=== PATIENT | female | born 1970 | race Caucasian/White ===

== ENCOUNTER → 2016-03-17 | Outpatient (CLI) | payer BC ==
[~2016-03-17] MED LIST: CARAFATE1 G1; CLARITIN10 MG PO; GABAPENTIN300 M1 PO; METFORMIN ER500 MG PO; NEURONTIN100 MG PO; NEURONTIN300 MG PO; NORCO 325 MG-51 TAB PO; PAMELOR10 M1 PO; PRILOSEC40 MG; TAMIFLU75 MG PO; VIMOVO; VITAMIN D2000 IU PO
[2016-03-18 17:04] LABS: LYME AB/TOTAL IMMUNOGLOBULINS <0.91 ISR (0.00-0.90)
== END | disposition home or self-care (01) ==
LOC: LAB 14:14
PROVIDERS: Orthopaedic Surgery Orthopaedic Surgery of the Spine
DX: A69.20 Lyme disease, unspecified (principal)

== ENCOUNTER → 2016-05-22 | Outpatient (CLI) | payer BC ==
[2016-05-23 05:11] LABS: HEPATITIS B SURFACE AB 006395 Reactive (.)
[2016-05-23 12:09] LABS: SJOGREN ANTI-SS-A <0.2 AI (0.0-0.9); SJOREN AB, ANTI-SS-B <0.2 AI (0.0-0.9)
== END | disposition home or self-care (01) ==
LOC: LAB 12:38
PROVIDERS: Internal Medicine
DX: M35.01 Sjogren syndrome with keratoconjunctivitis (principal); R53.82 Chronic fatigue, unspecified; M54.5 Low back pain

== ENCOUNTER → 2016-07-26 | Outpatient (CLI) | payer BC | LOC: RAD 17:09 | DX: M47.892 Other spondylosis, cervical region (principal); M50.222 Other cervical disc displacement at C5-C6 level; M48.02 Spinal stenosis, cervical region ==

== ENCOUNTER → 2017-01-25 | Outpatient (CLI) | payer OTHER | END | disposition home or self-care (01) | LOC: MAMMO 01-10 01:14 | DX: Z12.31 Encounter for screening mammogram for malignant neoplasm of breast (principal) ==

== ENCOUNTER → 2017-01-30 | Outpatient (CLI) | payer OTHER ==
[2017-01-30 09:11] LABS: HEMATOCRIT 43.2 % (37.0-47.0); HEMOGLOBIN 14.7 g/dl (12.0-16.0); MEAN CELL VOLUME 92.5 fl (81.0-99.0); MEAN CORPUSCULAR HGB 31.5 pg (27.0-31.0); MEAN PLATELET VOLUME 11.4 fl (9.6-12.3); RED BLOOD COUNT 4.67 10*6/uL (4.10-5.10); RED CELL DISTRI WIDTH 12.5 % (0-14.5); WHITE BLOOD COUNT 12.9 10*3/uL (4.8-10.8)
[2017-01-30 09:24] LABS: CHLORIDE 105 mmol/L (98-107); POTASSIUM 3.7 mmol/L (3.5-5.1); SODIUM 140 mmol/L (136-145)
[2017-01-30 09:40] LABS: ALKALINE PHOSPHATASE 81 U/L (45-117); BUN 16 mg/dl (7-24); CHOLESTEROL 245 mg/dL (<200); CREATININE 0.77 mg/dL (0.55-1.02); HDL CHOLESTEROL 63 mg/dl (40-60); LDL CHOLESTEROL 158 mg/dL (9-159); SGOT/AST 12 IU/L (3-35); SGPT/ALT 20 U/L (12-78); TOTAL PROTEIN 8.4 gm/dL (6.4-8.2); TRIGLYCERIDES 122 mg/dl (<150); VLDL CHOLESTEROL 24 mg/dL (6-40)
[2017-01-30 10:02] LABS: VITAMIN D, 25-HYDROXY 34.8 ng/mL (30-100)
== END | disposition home or self-care (01) ==
LOC: LAB 01:40
DX: E55.9 Vitamin D deficiency, unspecified (principal); R10.11 Right upper quadrant pain; E78.00 Pure hypercholesterolemia, unspecified; Z87.19 Personal history of other diseases of the digestive system

== ENCOUNTER → 2017-06-25 | Outpatient (CLI) | payer OTHER | END | disposition home or self-care (01) | LOC: RESCLI 02:50 | DX: I10 Essential (primary) hypertension (principal); R00.0 Tachycardia, unspecified; R01.1 Cardiac murmur, unspecified; E55.9 Vitamin D deficiency, unspecified; M79.2 Neuralgia and neuritis, unspecified; E28.2 Polycystic ovarian syndrome; K21.9 Gastro-esophageal reflux disease without esophagitis; E66.9 Obesity, unspecified; Z68.31 Body mass index [BMI] 31.0-31.9, adult ==

== ENCOUNTER → 2017-07-02 | Outpatient (CLI) | payer OTHER | END | disposition home or self-care (01) | LOC: LAB 02:54 → CARD 07:00 | DX: I34.0 Nonrheumatic mitral (valve) insufficiency (principal); I10 Essential (primary) hypertension; E55.9 Vitamin D deficiency, unspecified; R79.89 Other specified abnormal findings of blood chemistry ==

== ENCOUNTER → 2017-07-23 | Outpatient (CLI) | payer OTHER | END | disposition home or self-care (01) | LOC: RESCLI 04:05 | DX: I10 Essential (primary) hypertension (principal); E66.09 Other obesity due to excess calories; K21.9 Gastro-esophageal reflux disease without esophagitis; J45.909 Unspecified asthma, uncomplicated; E66.9 Obesity, unspecified; E55.9 Vitamin D deficiency, unspecified; M54.2 Cervicalgia; M54.5 Low back pain; E28.2 Polycystic ovarian syndrome; Z90.49 Acquired absence of other specified parts of digestive tract; Z68.30 Body mass index [BMI] 30.0-30.9, adult ==

== ENCOUNTER 2018-01-16 12:58 | Emergency (ER) | payer OTHER ==
[~2018-01-16] VITALS: Ht 154.9 cm; Wt 72.6 kg
[~2018-01-16 12:58] MED LIST changes: +VITAMIN D-32000 UNI1 PO; -VITAMIN D2000 IU PO
[2018-01-16 12:59] VITALS: BP 138/64
[2018-01-16] MEDS ORDERED: TOPROL XL25 MG PO (13:04)
[2018-01-16] MEDS ORDERED: DULOXETINE HCL30 MG PO (13:04)
[2018-01-16 13:49] LABS: BILIRUBIN NEGATIVE (NEGATIVE); BLOOD NEGATIVE (NEGATIVE); CLARITY SL CLOUDY (CLEAR); COLOR YELLOW (YELLOW); GLUCOSE NEGATIVE (NEGATIVE); KETONE NEGATIVE (NEGATIVE); LEUKO ESTERASE NEGATIVE (NEGATIVE); NITRITE NEGATIVE (NEGATIVE); PH 5.5 (5.0-9.0); UROBILINOGEN 0.2 E.U./dl (0.2-1.0)
[2018-01-16 14:03] LABS: RBC 0-2 rbc/hpf (0-2)
[2018-01-16 14:14] LABS: BASO % 0.3 % (0.0-1.0); EOS # 0.1 10*3/uL (0.0-0.4); EOS % 0.9 % (1.0-4.0); HEMATOCRIT 40.4 % (37.0-47.0); HEMOGLOBIN 13.6 g/dl (12.0-16.0); LYMPH # 2.7 10*3/uL (1.3-4.4); LYMPH % 26.2 % (27.0-41.0); MEAN CELL VOLUME 95.1 fl (81.0-99.0); MEAN CORPUSCULAR HGB CONC 33.7 g/dl (33.0-37.0); MEAN PLATELET VOLUME 10.9 fl (9.6-12.3); MONO # 0.8 10*3/uL (0.1-1.0); MONO % 7.6 % (3.0-9.0); NEUT # 6.5 10*3/uL (2.3-7.9); NEUT % 64.6 % (47.0-73.0); PLATELET COUNT AUTOMATED 326 10*3/uL (130-400); RED BLOOD COUNT 4.25 10*6/uL (4.10-5.10); RED CELL DISTRI WIDTH 12.6 % (0-14.5); WHITE BLOOD COUNT 10.1 10*3/uL (4.8-10.8)
[2018-01-16 14:36] LABS: ALBUMIN 3.6 gm/dl (3.1-4.5); ALKALINE PHOSPHATASE 79 U/L (45-117); BUN 16 mg/dl (7-24); CHLORIDE 105 mmol/L (98-107); CREATININE 0.71 mg/dL (0.55-1.02); SGOT/AST 16 IU/L (3-35); SGPT/ALT 19 U/L (12-78); SODIUM 137 mmol/L (136-145); TOTAL PROTEIN 7.4 gm/dL (6.4-8.2)
[2018-01-16 14:38] LABS: B-hCG (QUALITATIVE) NEGATIVE (NEGATIVE)
== END 2018-01-16 15:02 | disposition home or self-care (01) ==
LOC: ED 12:58
PROVIDERS: Internal Medicine
DX: R10.31 Right lower quadrant pain (principal); Z79.899 Other long term (current) drug therapy

== ENCOUNTER → 2018-01-18 | Outpatient (CLI) | payer OTHER ==
[~2018-01-18] MED LIST changes: +DULOXETINE HCL30 MG PO; +TOPROL XL25 MG PO
== END | disposition home or self-care (01) ==
LOC: US 08:48
DX: R10.2 Pelvic and perineal pain (principal)

== ENCOUNTER → 2018-02-14 | Outpatient (CLI) | payer OTHER | END | disposition home or self-care (01) | DX: M54.2 Cervicalgia (principal) ==

== ENCOUNTER → 2018-02-28 | Outpatient (CLI) | payer OTHER ==
[2018-02-28 08:26] LABS: BASO % 0.2 % (0.0-1.0); EOS # 0.1 10*3/uL (0.0-0.4); EOS % 0.6 % (1.0-4.0); HEMATOCRIT 42.9 % (37.0-47.0); LYMPH # 1.8 10*3/uL (1.3-4.4); LYMPH % 15.2 % (27.0-41.0); MEAN CELL VOLUME 95.5 fl (81.0-99.0); MEAN CORPUSCULAR HGB 31.2 pg (27.0-31.0); MEAN CORPUSCULAR HGB CONC 32.6 g/dl (33.0-37.0); MEAN PLATELET VOLUME 10.9 fl (9.6-12.3); MONO # 0.9 10*3/uL (0.1-1.0); MONO % 7.8 % (3.0-9.0); NEUT # 9.1 10*3/uL (2.3-7.9); NEUT % 75.7 % (47.0-73.0); PLATELET COUNT AUTOMATED 353 10*3/uL (130-400); RED BLOOD COUNT 4.49 10*6/uL (4.10-5.10); RED CELL DISTRI WIDTH 12.2 % (0-14.5); WHITE BLOOD COUNT 12.1 10*3/uL (4.8-10.8)
[2018-02-28 08:42] LABS: BUN 16 mg/dl (7-24); CHLORIDE 103 mmol/L (98-107); CREATININE 0.81 mg/dL (0.55-1.02); POTASSIUM 3.6 mmol/L (3.5-5.1); SODIUM 138 mmol/L (136-145)
[2018-03-01 05:09] LABS: TOTAL PROTEIN, SERUM 7.5 g/dL (6.0-8.5)
[2018-03-01 08:12] LABS: IMMUNOGLOBULIN G, QNT 1024 mg/dL (700-1600); IMMUNOGLOBULIN M, QNT 100 mg/dL (26-217)
[2018-03-01 14:12] LABS: A/G RATIO 0.9 (0.7-1.7); ALBUMIN 3.6 g/dL (2.9-4.4); ALPHA-1-GLOBULIN 0.3 g/dL (0.0-0.4); ALPHA-2-GLOBULIN 0.9 g/dL (0.4-1.0); BETA GLOBULIN 1.5 g/dL (0.7-1.3); GAMMA GLOBULIN 1.2 g/dL (0.4-1.8); GLOBULIN, TOTAL 3.9 g/dL (2.2-3.9); M-SPIKE Not Observed g/dL (Not Observed)
== END | disposition home or self-care (01) ==
LOC: LAB
PROVIDERS: Internal Medicine
DX: D47.2 Monoclonal gammopathy (principal)

== ENCOUNTER → 2018-02-28 | Outpatient (CLI) | payer OTHER | END | disposition home or self-care (01) | LOC: RESCLI 03:03 | DX: E78.00 Pure hypercholesterolemia, unspecified (principal); R13.10 Dysphagia, unspecified; M54.2 Cervicalgia; M54.5 Low back pain; J45.909 Unspecified asthma, uncomplicated; D47.2 Monoclonal gammopathy; E55.9 Vitamin D deficiency, unspecified; R73.09 Other abnormal glucose; K21.9 Gastro-esophageal reflux disease without esophagitis; F32.9 Major depressive disorder, single episode, unspecified; I10 Essential (primary) hypertension; Z79.84 Long term (current) use of oral hypoglycemic drugs; Z87.19 Personal history of other diseases of the digestive system; Z79.899 Other long term (current) drug therapy ==

== ENCOUNTER → 2018-03-08 | Outpatient (CLI) | payer OTHER | END | disposition home or self-care (01) | LOC: RESCLI 11:32 | DX: R06.02 Shortness of breath (principal); R05 Cough; R07.81 Pleurodynia; I10 Essential (primary) hypertension; K21.9 Gastro-esophageal reflux disease without esophagitis; J45.909 Unspecified asthma, uncomplicated; E66.9 Obesity, unspecified; W06.XXXA Fall from bed, initial encounter; Y93.89 Activity, other specified; Y92.89 Other specified places as the place of occurrence of the external cause; Y99.8 Other external cause status; Z79.899 Other long term (current) drug therapy; Z79.84 Long term (current) use of oral hypoglycemic drugs ==

== ENCOUNTER → 2018-03-12 | Outpatient (CLI) | payer OTHER | END | disposition home or self-care (01) | LOC: US 03-05 15:00 | DX: R10.31 Right lower quadrant pain (principal) ==

== ENCOUNTER → 2018-03-13 | Outpatient (CLI) | payer OTHER | END | disposition home or self-care (01) | LOC: RAD 14:01 | DX: M50.10 Cervical disc disorder with radiculopathy, unspecified cervical region (principal); M48.02 Spinal stenosis, cervical region; M85.88 Other specified disorders of bone density and structure, other site; M54.9 Dorsalgia, unspecified; M79.605 Pain in left leg; G89.29 Other chronic pain; W19.XXXA Unspecified fall, initial encounter; Y93.89 Activity, other specified; Y92.89 Other specified places as the place of occurrence of the external cause; Y99.8 Other external cause status ==

== ENCOUNTER → 2018-04-25 | Outpatient (CLI) | payer OTHER | END | disposition home or self-care (01) | LOC: MAMMO 03:11 | DX: Z12.31 Encounter for screening mammogram for malignant neoplasm of breast (principal); Z01.419 Encounter for gynecological examination (general) (routine) without abnormal findings ==

== ENCOUNTER → 2018-05-20 | Outpatient (CLI) | payer OTHER | END | disposition home or self-care (01) | LOC: MRI 05-16 01:26 | DX: M50.11 Cervical disc disorder with radiculopathy, high cervical region (principal); M43.22 Fusion of spine, cervical region ==

== ENCOUNTER → 2018-06-12 | Outpatient (CLI) | payer OTHER ==
[2018-06-12 08:37] LABS: BUN 17 mg/dl (7-24); CHLORIDE 106 mmol/L (98-107); CREATININE 0.84 mg/dL (0.55-1.02); POTASSIUM 3.5 mmol/L (3.5-5.1); SODIUM 139 mmol/L (136-145)
== END | disposition home or self-care (01) ==
LOC: LAB 06-11 14:54
PROVIDERS: Internal Medicine
DX: R13.10 Dysphagia, unspecified (principal); R73.09 Other abnormal glucose

== ENCOUNTER → 2018-06-13 | Outpatient (CLI) | payer OTHER | END | disposition home or self-care (01) | LOC: RESCLI 01:30 | DX: E78.00 Pure hypercholesterolemia, unspecified (principal); M54.5 Low back pain; J45.909 Unspecified asthma, uncomplicated; D47.2 Monoclonal gammopathy; E55.9 Vitamin D deficiency, unspecified; E28.2 Polycystic ovarian syndrome; I10 Essential (primary) hypertension; K21.9 Gastro-esophageal reflux disease without esophagitis; E66.09 Other obesity due to excess calories; F32.9 Major depressive disorder, single episode, unspecified; M50.20 Other cervical disc displacement, unspecified cervical region; G62.9 Polyneuropathy, unspecified; R73.03 Prediabetes; Z87.19 Personal history of other diseases of the digestive system; Z79.899 Other long term (current) drug therapy; Z68.30 Body mass index [BMI] 30.0-30.9, adult; Z79.82 Long term (current) use of aspirin ==

== ENCOUNTER → 2018-09-13 | Outpatient (CLI) | payer OTHER | END | disposition home or self-care (01) | LOC: RESCLI 02:01 | DX: J45.909 Unspecified asthma, uncomplicated (principal); K21.9 Gastro-esophageal reflux disease without esophagitis; E55.9 Vitamin D deficiency, unspecified; G62.9 Polyneuropathy, unspecified; R73.03 Prediabetes; E28.2 Polycystic ovarian syndrome; I10 Essential (primary) hypertension; M54.5 Low back pain; E78.00 Pure hypercholesterolemia, unspecified; Z68.30 Body mass index [BMI] 30.0-30.9, adult; Z79.899 Other long term (current) drug therapy; Z88.8 Allergy status to other drugs, medicaments and biological substances ==

== ENCOUNTER → 2018-10-25 | Outpatient (CLI) | payer SELFPAY ==
--- NOTE | ~2018-10-25 | EKG ---
[place], [place] ELECTROCARDIOGRAM REPORT NAME: MARJORIE ROD UNIT #: [id number] ROOM: DOCTOR: EPIPHANY DRAFT REPORT BIRTHDATE: [birth year] [facility] Test Date: 2018-10-25 Test Time: 14:28:37 Pat Name: MARJORIE ROD Department: Room: Gender: F Business Analyst: Shraddha Huddleston : 1970 Requested By: GRIS CUMMINGS Order Number: [id number] Reading MD: Antonio Quiroga MD Measurements Intervals [place] Rate: 98 P: 67 GA: 154 QRS: 4 QRSD: 91 T: 25 QT: 362 QTc: 463 Interpretive Statements Sinus rhythm Probable left atrial enlargement Low voltage, precordial leads Baseline wander in lead(s) V5,V6 No previous ECG available for comparison Electronically Signed On 10-30-2018 8:41:28 PDT by Antonio Quiroga MD CM:EKGRPT:ELECTROCARDIOGRAM REPORT [id number] GRIS OLSON DRAFT REPORT GRIS CUMMINGS MD
[2018-10-25 15:36] LABS: BASO % 0.4 % (0.0-1.0); EOS # 0.1 10*3/uL (0.0-0.4); EOS % 0.8 % (1.0-4.0); HEMATOCRIT 41.1 % (37.0-47.0); HEMOGLOBIN 13.8 g/dl (12.0-16.0); LYMPH # 2.1 10*3/uL (1.3-4.4); LYMPH % 21.8 % (27.0-41.0); MEAN CELL VOLUME 95.1 fl (81.0-99.0); MEAN CORPUSCULAR HGB 31.9 pg (27.0-31.0); MEAN CORPUSCULAR HGB CONC 33.6 g/dl (33.0-37.0); MONO % 10.3 % (3.0-9.0); NEUT # 6.4 10*3/uL (2.3-7.9); NEUT % 66.3 % (47.0-73.0); PLATELET COUNT AUTOMATED 350 10*3/uL (130-400); RED BLOOD COUNT 4.32 10*6/uL (4.10-5.10); RED CELL DISTRI WIDTH 12.9 % (0-14.5); WHITE BLOOD COUNT 9.6 10*3/uL (4.8-10.8)
[2018-10-25 16:07] LABS: ALBUMIN 3.8 gm/dl (3.1-4.5); ALKALINE PHOSPHATASE 80 U/L (45-117); BUN 13 mg/dl (7-24); CHLORIDE 103 mmol/L (98-107); CHOLESTEROL 210 mg/dL (<200); CREATININE 0.75 mg/dL (0.55-1.02); HDL CHOLESTEROL 51 mg/dl (40-60); LDL CHOLESTEROL 128 mg/dL (9-159); POTASSIUM 3.4 mmol/L (3.5-5.1); SGOT/AST 17 IU/L (3-35); SGPT/ALT 30 U/L (12-78); SODIUM 137 mmol/L (136-145); TOTAL PROTEIN 7.9 gm/dL (6.4-8.2); TRIGLYCERIDES 157 mg/dl (<150); VLDL CHOLESTEROL 31 mg/dL (6-40)
== END | disposition home or self-care (01) ==
LOC: RESCLI 11:19
PROVIDERS: Student in an Organized Health Care Education/Training Program
DX: I47.1 Supraventricular tachycardia (principal); E78.00 Pure hypercholesterolemia, unspecified; K21.9 Gastro-esophageal reflux disease without esophagitis; Z79.899 Other long term (current) drug therapy

== ENCOUNTER → 2018-11-22 | Outpatient (CLI) | payer OTHER | END | disposition home or self-care (01) | LOC: RESCLI 00:24 | DX: I10 Essential (primary) hypertension (principal); J45.909 Unspecified asthma, uncomplicated; K21.9 Gastro-esophageal reflux disease without esophagitis; E55.9 Vitamin D deficiency, unspecified; E28.2 Polycystic ovarian syndrome; G62.9 Polyneuropathy, unspecified; I47.1 Supraventricular tachycardia; E66.09 Other obesity due to excess calories; Z68.30 Body mass index [BMI] 30.0-30.9, adult; Z79.899 Other long term (current) drug therapy; Z88.8 Allergy status to other drugs, medicaments and biological substances ==

== ENCOUNTER → 2019-02-04 | Outpatient (CLI) | payer OTHER | END | disposition home or self-care (01) | LOC: RAD 12:10 | DX: M79.671 Pain in right foot (principal) ==

== ENCOUNTER → 2019-02-04 | Outpatient (CLI) | payer OTHER | END | disposition home or self-care (01) | LOC: RESCLI 11:02 | DX: Z12.39 Encounter for other screening for malignant neoplasm of breast (principal); Z23 Encounter for immunization; M54.5 Low back pain; J45.909 Unspecified asthma, uncomplicated; E55.9 Vitamin D deficiency, unspecified; I10 Essential (primary) hypertension; K21.9 Gastro-esophageal reflux disease without esophagitis; F32.9 Major depressive disorder, single episode, unspecified; M50.20 Other cervical disc displacement, unspecified cervical region; G62.9 Polyneuropathy, unspecified; E28.2 Polycystic ovarian syndrome; M79.671 Pain in right foot; Z79.899 Other long term (current) drug therapy; Z90.49 Acquired absence of other specified parts of digestive tract ==

== ENCOUNTER → 2019-02-18 | Outpatient (CLI) | payer OTHER | END | disposition home or self-care (01) | LOC: RESCLI 13:19 | DX: J45.909 Unspecified asthma, uncomplicated (principal); I10 Essential (primary) hypertension; G62.9 Polyneuropathy, unspecified; E55.9 Vitamin D deficiency, unspecified; E28.2 Polycystic ovarian syndrome; D47.2 Monoclonal gammopathy; E66.09 Other obesity due to excess calories; E78.00 Pure hypercholesterolemia, unspecified; M54.5 Low back pain; K21.9 Gastro-esophageal reflux disease without esophagitis; M50.20 Other cervical disc displacement, unspecified cervical region; F32.9 Major depressive disorder, single episode, unspecified; M79.671 Pain in right foot; Z68.30 Body mass index [BMI] 30.0-30.9, adult; Z79.899 Other long term (current) drug therapy; Z90.49 Acquired absence of other specified parts of digestive tract; Z87.19 Personal history of other diseases of the digestive system ==

== ENCOUNTER → 2019-03-27 | Outpatient (CLI) | payer OTHER | END | disposition home or self-care (01) | LOC: RESCLI 00:15 | DX: E78.00 Pure hypercholesterolemia, unspecified (principal); M54.5 Low back pain; J45.909 Unspecified asthma, uncomplicated; D47.2 Monoclonal gammopathy; E55.9 Vitamin D deficiency, unspecified; I10 Essential (primary) hypertension; K21.9 Gastro-esophageal reflux disease without esophagitis; E66.09 Other obesity due to excess calories; F32.9 Major depressive disorder, single episode, unspecified; M50.20 Other cervical disc displacement, unspecified cervical region; G62.9 Polyneuropathy, unspecified; E28.2 Polycystic ovarian syndrome; M79.671 Pain in right foot; M84.374G Stress fracture, right foot, subsequent encounter for fracture with delayed healing; Z87.19 Personal history of other diseases of the digestive system; Z68.30 Body mass index [BMI] 30.0-30.9, adult; Z90.49 Acquired absence of other specified parts of digestive tract ==

== ENCOUNTER → 2019-04-28 | Outpatient (CLI) | payer OTHER | END | disposition home or self-care (01) | LOC: MAMMO 07:15 | DX: Z12.31 Encounter for screening mammogram for malignant neoplasm of breast (principal) ==

== ENCOUNTER → 2019-08-04 | Outpatient (CLI) | payer OTHER | END | disposition home or self-care (01) | LOC: MRI 03:53 | DX: M79.671 Pain in right foot (principal); R22.41 Localized swelling, mass and lump, right lower limb; Z57.2 Occupational exposure to dust ==

== ENCOUNTER → 2019-11-07 | Outpatient (CLI) | payer OTHER | END | disposition home or self-care (01) | LOC: RESCLI 01:13 | PROVIDERS: ATTEND Internal Medicine | DX: J45.909 Unspecified asthma, uncomplicated (principal); E28.2 Polycystic ovarian syndrome; G62.9 Polyneuropathy, unspecified; E55.9 Vitamin D deficiency, unspecified; K21.9 Gastro-esophageal reflux disease without esophagitis; M50.20 Other cervical disc displacement, unspecified cervical region; I10 Essential (primary) hypertension; G89.29 Other chronic pain; M79.671 Pain in right foot; M89.49 Other hypertrophic osteoarthropathy, multiple sites; F41.9 Anxiety disorder, unspecified; M54.5 Low back pain; J30.2 Other seasonal allergic rhinitis; E78.00 Pure hypercholesterolemia, unspecified; R73.9 Hyperglycemia, unspecified; Z79.899 Other long term (current) drug therapy; Z98.890 Other specified postprocedural states ==

== ENCOUNTER → 2019-11-13 | Outpatient (CLI) | payer OTHER ==
[2019-11-13 09:32] LABS: ALBUMIN 3.6 gm/dl (3.1-4.5); ALKALINE PHOSPHATASE 86 U/L (45-117); BUN 24 mg/dl (7-24); CHLORIDE 104 mmol/L (98-107); CHOLESTEROL 218 mg/dL (<200); CREATININE 0.87 mg/dL (0.55-1.02); HDL CHOLESTEROL 54 mg/dl (40-60); LDL CHOLESTEROL 125 mg/dL (9-159); POTASSIUM 3.9 mmol/L (3.5-5.1); SGOT/AST 14 IU/L (3-35); SGPT/ALT 22 U/L (12-78); SODIUM 137 mmol/L (136-145); TRIGLYCERIDES 195 mg/dl (<150); VLDL CHOLESTEROL 39 mg/dL (6-40)
[2019-11-13 09:37] LABS: BASO % 0.5 % (0.0-1.0); EOS # 0.2 10*3/uL (0.0-0.4); EOS % 2.1 % (1.0-4.0); HEMATOCRIT 43.2 % (37.0-47.0); LYMPH # 2.2 10*3/uL (1.3-4.4); LYMPH % 27.1 % (27.0-41.0); MEAN CELL VOLUME 92.3 fl (81.0-99.0); MEAN CORPUSCULAR HGB CONC 33.6 g/dl (33.0-37.0); MEAN PLATELET VOLUME 11.1 fl (9.6-12.3); MONO # 0.7 10*3/uL (0.1-1.0); MONO % 8.6 % (3.0-9.0); NEUT # 4.9 10*3/uL (2.3-7.9); NEUT % 61.3 % (47.0-73.0); PLATELET COUNT AUTOMATED 323 10*3/uL (130-400); RED BLOOD COUNT 4.68 10*6/uL (4.10-5.10); RED CELL DISTRI WIDTH 12.4 % (0-14.5)
== END | disposition home or self-care (01) ==
LOC: LAB 00:37
PROVIDERS: ATTEND Student in an Organized Health Care Education/Training Program
DX: I10 Essential (primary) hypertension (principal); E78.00 Pure hypercholesterolemia, unspecified; E55.9 Vitamin D deficiency, unspecified; R73.9 Hyperglycemia, unspecified

== ENCOUNTER → 2019-11-19 | Outpatient (CLI) | payer OTHER | END | disposition home or self-care (01) | LOC: RAD 03:55 | PROVIDERS: ATTEND Psychiatry & Neurology Psychiatry | DX: M84.374G Stress fracture, right foot, subsequent encounter for fracture with delayed healing (principal) ==

== ENCOUNTER 2020-02-22 12:09 | Emergency (ER) | payer OTHER ==
[~2020-02-22] VITALS: Wt 77.1 kg
[2020-02-22 12:16] VITALS: BP 144/91
[2020-02-22 12:42] LABS: BASO % 0.2 % (0.0-1.0); EOS # 0.1 10*3/uL (0.0-0.4); EOS % 1.6 % (1.0-4.0); HEMATOCRIT 42.1 % (37.0-47.0); LYMPH # 2.2 10*3/uL (1.3-4.4); LYMPH % 26.1 % (27.0-41.0); MEAN CELL VOLUME 92.7 fl (81.0-99.0); MEAN CORPUSCULAR HGB 31.1 pg (27.0-31.0); MEAN CORPUSCULAR HGB CONC 33.5 g/dl (33.0-37.0); MEAN PLATELET VOLUME 10.5 fl (9.6-12.3); MONO # 0.8 10*3/uL (0.1-1.0); MONO % 9.6 % (3.0-9.0); NEUT # 5.3 10*3/uL (2.3-7.9); NEUT % 62.1 % (47.0-73.0); PLATELET COUNT AUTOMATED 343 10*3/uL (130-400); RED BLOOD COUNT 4.54 10*6/uL (4.10-5.10); RED CELL DISTRI WIDTH 12.2 % (0-14.5); WHITE BLOOD COUNT 8.5 10*3/uL (4.8-10.8)
[2020-02-22 12:52] LABS: ACT PARTIAL THROMBO TIME 25.6 SECONDS (20.0-32.1); INTERNATIONAL NORM RATIO 0.9 (2.0-3.5)
[2020-02-22 13:03] LABS: ALBUMIN 3.7 gm/dl (3.1-4.5); ALKALINE PHOSPHATASE 82 U/L (45-117); BUN 19 mg/dl (7-24); CHLORIDE 105 mmol/L (98-107); CREATININE 0.78 mg/dL (0.55-1.02); LIPASE 129 U/L (73-393); POTASSIUM 3.5 mmol/L (3.5-5.1); SGOT/AST 17 IU/L (3-35); SGPT/ALT 34 U/L (12-78); SODIUM 138 mmol/L (136-145); TOTAL PROTEIN 7.9 gm/dL (6.4-8.2)
[2020-02-22 13:04] LABS: TROPONIN I < 0.015 ng/ml (<0.045)
== END 2020-02-22 17:20 | disposition home or self-care (01) ==
LOC: ED 12:09
PROVIDERS: Emergency Medicine
DX: J12.81 Pneumonia due to SARS-associated coronavirus (principal); J45.909 Unspecified asthma, uncomplicated; K21.9 Gastro-esophageal reflux disease without esophagitis; E78.00 Pure hypercholesterolemia, unspecified; Z79.899 Other long term (current) drug therapy; Z98.890 Other specified postprocedural states

== ENCOUNTER → 2020-02-27 | Outpatient (CLI) | payer OTHER | END | disposition home or self-care (01) | LOC: RESCLI 00:23 | PROVIDERS: ATTEND Family Medicine | DX: J45.909 Unspecified asthma, uncomplicated (principal); U07.1 COVID-19; I10 Essential (primary) hypertension; E28.2 Polycystic ovarian syndrome; K21.9 Gastro-esophageal reflux disease without esophagitis; Z79.899 Other long term (current) drug therapy ==

== ENCOUNTER → 2020-03-25 | Outpatient (CLI) | payer OTHER | END | disposition home or self-care (01) | LOC: CT 01:13 | PROVIDERS: ATTEND Internal Medicine | DX: R06.02 Shortness of breath (principal); Z90.49 Acquired absence of other specified parts of digestive tract ==

== ENCOUNTER → 2020-03-29 | Outpatient (CLI) | payer OTHER | END | disposition home or self-care (01) | LOC: CARD 00:15 | PROVIDERS: ATTEND Internal Medicine | DX: R06.02 Shortness of breath (principal) ==

== ENCOUNTER → 2020-05-26 | Outpatient (CLI) | payer OTHER ==
[2020-05-26 08:25] LABS: BASO % 0.4 % (0.0-1.0); EOS # 0.2 10*3/uL (0.0-0.4); EOS % 2.2 % (1.0-4.0); HEMATOCRIT 43.8 % (37.0-47.0); LYMPH # 2.2 10*3/uL (1.3-4.4); LYMPH % 27.8 % (27.0-41.0); MEAN CELL VOLUME 92.8 fl (81.0-99.0); MEAN CORPUSCULAR HGB 31.1 pg (27.0-31.0); MEAN CORPUSCULAR HGB CONC 33.6 g/dl (33.0-37.0); MEAN PLATELET VOLUME 10.4 fl (9.6-12.3); MONO # 0.8 10*3/uL (0.1-1.0); MONO % 9.6 % (3.0-9.0); NEUT # 4.7 10*3/uL (2.3-7.9); NEUT % 59.7 % (47.0-73.0); PLATELET COUNT AUTOMATED 424 10*3/uL (130-400); RED BLOOD COUNT 4.72 10*6/uL (4.10-5.10); RED CELL DISTRI WIDTH 12.1 % (0-14.5); WHITE BLOOD COUNT 7.8 10*3/uL (4.8-10.8)
[2020-05-26 08:55] LABS: ALBUMIN 3.8 gm/dl (3.1-4.5); ALKALINE PHOSPHATASE 90 U/L (45-117); BUN 16 mg/dl (7-24); CHLORIDE 104 mmol/L (98-107); CHOLESTEROL 262 mg/dL (<200); CREATININE 0.96 mg/dL (0.55-1.02); FREE T4 0.91 ng/dl (0.76-1.46); HDL CHOLESTEROL 57 mg/dl (40-60); LDL CHOLESTEROL 164 mg/dL (9-159); POTASSIUM 3.6 mmol/L (3.5-5.1); SGOT/AST 14 IU/L (3-35); SGPT/ALT 32 U/L (12-78); SODIUM 138 mmol/L (136-145); TOTAL PROTEIN 8.5 gm/dL (6.4-8.2); TRIGLYCERIDES 203 mg/dl (<150); VLDL CHOLESTEROL 41 mg/dL (6-40)
[2020-05-26 09:35] LABS: VITAMIN D, 25-HYDROXY 20.7 ng/mL (30-100)
== END | disposition home or self-care (01) ==
LOC: LAB 00:39
PROVIDERS: ATTEND Internal Medicine
DX: Z00.01 Encounter for general adult medical examination with abnormal findings (principal); R73.9 Hyperglycemia, unspecified; I10 Essential (primary) hypertension; E55.9 Vitamin D deficiency, unspecified; Z13.21 Encounter for screening for nutritional disorder; Z13.220 Encounter for screening for lipoid disorders

== ENCOUNTER → 2020-05-28 | Outpatient (CLI) | payer OTHER | END | disposition home or self-care (01) | LOC: MRI 00:49 | PROVIDERS: ATTEND Internal Medicine | DX: M48.061 Spinal stenosis, lumbar region without neurogenic claudication (principal); M51.36 Other intervertebral disc degeneration, lumbar region; M47.816 Spondylosis without myelopathy or radiculopathy, lumbar region; I10 Essential (primary) hypertension; E28.2 Polycystic ovarian syndrome; F32.9 Major depressive disorder, single episode, unspecified; G62.9 Polyneuropathy, unspecified; E55.9 Vitamin D deficiency, unspecified; K21.9 Gastro-esophageal reflux disease without esophagitis; E78.00 Pure hypercholesterolemia, unspecified; M67.873 Other specified disorders of tendon, right ankle and foot; Z12.39 Encounter for other screening for malignant neoplasm of breast; Z79.899 Other long term (current) drug therapy ==

== ENCOUNTER → 2020-06-01 | Outpatient (CLI) | payer OTHER ==
[2020-06-02 04:06] LABS: TOTAL PROTEIN, SERUM 7.2 g/dL (6.0-8.5)
[2020-06-02 16:08] LABS: A/G RATIO 1.1 (0.7-1.7); ALBUMIN 3.7 g/dL (2.9-4.4); ALPHA-1-GLOBULIN 0.3 g/dL (0.0-0.4); ALPHA-2-GLOBULIN 0.9 g/dL (0.4-1.0); BETA GLOBULIN 1.3 g/dL (0.7-1.3); GAMMA GLOBULIN 1.1 g/dL (0.4-1.8); GLOBULIN, TOTAL 3.5 g/dL (2.2-3.9); M-SPIKE Not Observed g/dL (Not Observed)
[2020-06-03 13:06] LABS: ALBUMIN, URINE 29.3 % (.); ALPHA-1-GLOBULIN, URINE 3.2 % (.); ALPHA-2-GLOBULIN, URINE 14.1 % (.); BETA GLOBULIN, URINE 30.3 % (.); M-SPIKE, % Not Observed % (Not Observed); PROTEIN,TOTAL - URINE RANDOM <4.0 mg/dL (Not Estab.)
== END | disposition home or self-care (01) ==
LOC: LAB 13:04
PROVIDERS: ATTEND Internal Medicine
DX: R79.89 Other specified abnormal findings of blood chemistry (principal); R76.9 Abnormal immunological finding in serum, unspecified; R77.9 Abnormality of plasma protein, unspecified; R74.8 Abnormal levels of other serum enzymes

== ENCOUNTER → 2020-07-08 | Day surgery (SDC) | payer OTHER ==
[2020-07-05 14:37] LABS: BUN 14 mg/dl (7-24); CHLORIDE 103 mmol/L (98-107); CREATININE 0.76 mg/dL (0.55-1.02); POTASSIUM 3.8 mmol/L (3.5-5.1); SODIUM 138 mmol/L (136-145)
[~2020-07-08] VITALS: Ht 154.9 cm; Wt 76.2 kg
[~2020-07-08] MED LIST changes: +BUSPAR5 MG PO; +HYDROCHLOROTH12.5 M3 PO; +LOVASTATIN10 MG PO; -VITAMIN D-32000 UNI1 PO; +VITAMIN D-40010 MCG PO
[2020-07-08 08:41] VITALS: BP 116/85
[2020-07-08 10:15] VITALS: BP 131/79
[2020-07-08 10:30] VITALS: BP 127/77
[2020-07-08 10:45] VITALS: BP 131/79
== END | disposition home or self-care (01) ==
LOC: SDC 07-05 13:15
PROVIDERS: ATTEND Orthopaedic Surgery
DX: M67.471 Ganglion, right ankle and foot (principal); I10 Essential (primary) hypertension; J45.909 Unspecified asthma, uncomplicated; F41.9 Anxiety disorder, unspecified; E78.00 Pure hypercholesterolemia, unspecified; K21.9 Gastro-esophageal reflux disease without esophagitis; Z90.49 Acquired absence of other specified parts of digestive tract; Z98.1 Arthrodesis status; Z79.899 Other long term (current) drug therapy; Z20.822 Contact with and (suspected) exposure to COVID-19

== ENCOUNTER → 2020-07-13 | Outpatient (CLI) | payer OTHER | END | disposition home or self-care (01) | LOC: US 01:15 | PROVIDERS: ATTEND Internal Medicine | DX: E04.1 Nontoxic single thyroid nodule (principal) ==

== ENCOUNTER → 2020-08-12 | Outpatient (CLI) | payer OTHER | END | disposition home or self-care (01) | LOC: LAB 09:27 | PROVIDERS: ATTEND Nurse Practitioner Women's Health | DX: N91.2 Amenorrhea, unspecified (principal); R53.83 Other fatigue ==

== ENCOUNTER → 2020-08-13 | Outpatient (CLI) | payer OTHER | END | disposition home or self-care (01) | LOC: US 01:27 | PROVIDERS: ATTEND Nurse Practitioner Women's Health | DX: R10.2 Pelvic and perineal pain (principal) ==

== ENCOUNTER → 2020-12-09 | Outpatient (CLI) | payer OTHER | END | disposition home or self-care (01) | LOC: RESCLI 00:47 | PROVIDERS: ATTEND Internal Medicine | DX: E66.9 Obesity, unspecified (principal); M48.00 Spinal stenosis, site unspecified; I10 Essential (primary) hypertension; E78.00 Pure hypercholesterolemia, unspecified; J45.909 Unspecified asthma, uncomplicated; Z79.899 Other long term (current) drug therapy; Z79.84 Long term (current) use of oral hypoglycemic drugs; Z90.49 Acquired absence of other specified parts of digestive tract; Z98.890 Other specified postprocedural states ==

== ENCOUNTER → 2021-03-01 | Outpatient (CLI) | payer OTHER ==
[2021-03-01 12:42] LABS: BASO # 0.1 10*3/uL (0.0-0.1); BASO % 0.6 % (0.0-1.0); EOS # 0.2 10*3/uL (0.0-0.4); EOS % 2.5 % (1.0-4.0); HEMATOCRIT 40.2 % (37.0-47.0); LYMPH # 2.9 10*3/uL (1.3-4.4); LYMPH % 32.6 % (27.0-41.0); MEAN CELL VOLUME 93.5 fl (81.0-99.0); MEAN CORPUSCULAR HGB 31.2 pg (27.0-31.0); MEAN CORPUSCULAR HGB CONC 33.3 g/dl (33.0-37.0); MEAN PLATELET VOLUME 10.4 fl (9.6-12.3); MONO # 0.9 10*3/uL (0.1-1.0); MONO % 9.7 % (3.0-9.0); NEUT # 4.8 10*3/uL (2.3-7.9); NEUT % 54.1 % (47.0-73.0); PLATELET COUNT AUTOMATED 374 10*3/uL (130-400); RED CELL DISTRI WIDTH 13.2 % (0-14.5); WHITE BLOOD COUNT 8.8 10*3/uL (4.8-10.8)
[2021-03-01 12:59] LABS: ALBUMIN 3.3 gm/dl (3.1-4.5); BUN 19 mg/dl (7-24); CHLORIDE 103 mmol/L (98-107); CHOLESTEROL 200 mg/dL (<200); CREATININE 0.73 mg/dL (0.55-1.02); POTASSIUM 3.7 mmol/L (3.5-5.1); SGOT/AST 13 IU/L (3-35); SGPT/ALT 27 U/L (12-78); SODIUM 138 mmol/L (136-145); TOTAL PROTEIN 7.4 gm/dL (6.4-8.2); TRIGLYCERIDES 291 mg/dl (<150)
[2021-03-01 13:04] LABS: ALKALINE PHOSPHATASE 89 U/L (45-117); FREE T4 0.82 ng/dl (0.76-1.46); LDL CHOLESTEROL 94 mg/dL (9-159)
[2021-03-01 13:16] LABS: VITAMIN D, 25-HYDROXY 60.1 ng/mL (30-100)
== END | disposition home or self-care (01) ==
LOC: LAB 12:23
PROVIDERS: ATTEND Internal Medicine
DX: Z00.00 Encounter for general adult medical examination without abnormal findings (principal); E11.9 Type 2 diabetes mellitus without complications; E78.2 Mixed hyperlipidemia; E55.9 Vitamin D deficiency, unspecified; I10 Essential (primary) hypertension

== ENCOUNTER → 2021-07-28 | Day surgery (SDC) | payer OTHER ==
[~2021-07-28] VITALS: Ht 154.9 cm; Wt 79.8 kg
[~2021-07-28] MED LIST changes: +PERCOCET 5-3251 EACH PO; +TRULICITY0.75 MG/0. SC
[2021-07-28 07:23] VITALS: BP 129/77
[2021-07-28 09:04] VITALS: BP 111/72
[2021-07-28 09:15] VITALS: BP 107/74
[2021-07-28 09:33] VITALS: BP 120/76
== END | disposition home or self-care (01) ==
LOC: SDC 07-25 08:45
PROVIDERS: ATTEND Surgery
DX: D48.9 Neoplasm of uncertain behavior, unspecified (principal); D22.5 Melanocytic nevi of trunk; D22.71 Melanocytic nevi of right lower limb, including hip; L92.8 Other granulomatous disorders of the skin and subcutaneous tissue; J45.909 Unspecified asthma, uncomplicated; E78.00 Pure hypercholesterolemia, unspecified; I10 Essential (primary) hypertension; K21.9 Gastro-esophageal reflux disease without esophagitis; Z90.49 Acquired absence of other specified parts of digestive tract; Z98.890 Other specified postprocedural states

== ENCOUNTER → 2021-08-18 | Outpatient (CLI) | payer OTHER | END | disposition home or self-care (01) | LOC: MAMMO 08-09 14:00 | PROVIDERS: ATTEND Internal Medicine | DX: Z12.31 Encounter for screening mammogram for malignant neoplasm of breast (principal) ==

== ENCOUNTER → 2021-10-19 | Outpatient (CLI) | payer OTHER | END | disposition home or self-care (01) | LOC: RESCLI 08:44 | PROVIDERS: ATTEND Student in an Organized Health Care Education/Training Program | DX: E55.9 Vitamin D deficiency, unspecified (principal); M54.50 Low back pain, unspecified; M51.9 Unspecified thoracic, thoracolumbar and lumbosacral intervertebral disc disorder; J45.909 Unspecified asthma, uncomplicated; J30.2 Other seasonal allergic rhinitis; K21.9 Gastro-esophageal reflux disease without esophagitis; I10 Essential (primary) hypertension; R73.09 Other abnormal glucose; F32.9 Major depressive disorder, single episode, unspecified; M79.2 Neuralgia and neuritis, unspecified; T16.1XXA Foreign body in right ear, initial encounter; Z90.49 Acquired absence of other specified parts of digestive tract; Z79.899 Other long term (current) drug therapy; X58.XXXA Exposure to other specified factors, initial encounter ==

== ENCOUNTER → 2021-11-22 | Outpatient (CLI) | payer OTHER | END | disposition home or self-care (01) | LOC: CT 11:27 | PROVIDERS: ATTEND Internal Medicine | DX: G31.1 Senile degeneration of brain, not elsewhere classified (principal) ==

== ENCOUNTER → 2021-12-14 | Outpatient (CLI) | payer OTHER ==
[2021-12-14 11:05] LABS: BASO % 0.4 % (0.0-1.0); EOS # 0.1 10*3/uL (0.0-0.4); EOS % 1.5 % (1.0-4.0); HEMATOCRIT 43.9 % (37.0-47.0); LYMPH % 27.9 % (27.0-41.0); MEAN CELL VOLUME 93.6 fl (81.0-99.0); MEAN CORPUSCULAR HGB 30.9 pg (27.0-31.0); MEAN PLATELET VOLUME 10.9 fl (9.6-12.3); MONO # 0.5 10*3/uL (0.1-1.0); MONO % 7.4 % (3.0-9.0); NEUT # 4.6 10*3/uL (2.3-7.9); NEUT % 62.4 % (47.0-73.0); PLATELET COUNT AUTOMATED 345 10*3/uL (130-400); RED BLOOD COUNT 4.69 10*6/uL (4.10-5.10); RED CELL DISTRI WIDTH 12.4 % (0-14.5); WHITE BLOOD COUNT 7.3 10*3/uL (4.8-10.8)
[2021-12-14 11:26] LABS: ALKALINE PHOSPHATASE 105 U/L (45-117); BUN 20 mg/dl (7-24); CHLORIDE 106 mmol/L (98-107); CHOLESTEROL 246 mg/dL (<200); CREATININE 0.85 mg/dL (0.55-1.02); LDL CHOLESTEROL 167 mg/dL (9-159); POTASSIUM 3.9 mmol/L (3.5-5.1); SGOT/AST 17 IU/L (3-35); SGPT/ALT 26 U/L (12-78); SODIUM 142 mmol/L (136-145); TOTAL PROTEIN 8.1 gm/dL (6.4-8.2); TRIGLYCERIDES 129 mg/dl (<150)
[2021-12-16 07:06] LABS: METANEPHRINE, PLASMA <10.0 pg/mL (0.0-88.0); NORMETANEPHRINE, PLASMA 120.2 pg/mL (0.0-244.0)
[2021-12-20 10:07] LABS: ALDOSTERONE, SERUM 4.2 ng/dL (0.0-30.0)
[2021-12-21 17:06] LABS: ALDOSTERONE/RENIN RATIO 4.6 (0.0-30.0); RENIN ACTIVITY (PLASMA) 0.923 ng/mL/hr (0.167-5.380)
== END | disposition home or self-care (01) ==
LOC: LAB 00:48
PROVIDERS: ATTEND Nurse Practitioner Women's Health
DX: I10 Essential (primary) hypertension (principal); E78.5 Hyperlipidemia, unspecified; Z79.899 Other long term (current) drug therapy; R53.83 Other fatigue

== ENCOUNTER → 2022-02-27 | Outpatient (CLI) | payer OTHER | END | disposition home or self-care (01) | LOC: MRI 00:11 | PROVIDERS: ATTEND Internal Medicine | DX: M47.816 Spondylosis without myelopathy or radiculopathy, lumbar region (principal); M48.061 Spinal stenosis, lumbar region without neurogenic claudication; M48.07 Spinal stenosis, lumbosacral region; M25.78 Osteophyte, vertebrae; M47.812 Spondylosis without myelopathy or radiculopathy, cervical region; M48.02 Spinal stenosis, cervical region ==

== ENCOUNTER → 2022-03-14 | Outpatient (CLI) | payer OTHER | END | disposition home or self-care (01) | LOC: LAB 12:52 | PROVIDERS: ATTEND Family Medicine | DX: N91.2 Amenorrhea, unspecified (principal) ==

== ENCOUNTER → 2022-04-27 | Outpatient (CLI) | payer OTHER | END | disposition home or self-care (01) | LOC: CT 00:45 | PROVIDERS: ATTEND Neurological Surgery | DX: M47.26 Other spondylosis with radiculopathy, lumbar region (principal); M51.16 Intervertebral disc disorders with radiculopathy, lumbar region; M48.07 Spinal stenosis, lumbosacral region; M47.22 Other spondylosis with radiculopathy, cervical region; M48.03 Spinal stenosis, cervicothoracic region; Z98.1 Arthrodesis status ==

== ENCOUNTER → 2022-05-01 | Outpatient (CLI) | payer OTHER ==
[2022-05-01 14:54] LABS: HEMATOCRIT 43.8 % (37.0-47.0); MEAN CELL VOLUME 93.4 fl (81.0-99.0); MEAN CORPUSCULAR HGB 31.6 pg (27.0-31.0); MEAN CORPUSCULAR HGB CONC 33.8 g/dl (33.0-37.0); MEAN PLATELET VOLUME 10.8 fl (9.6-12.3); RED BLOOD COUNT 4.69 10*6/uL (4.10-5.10); RED CELL DISTRI WIDTH 12.7 % (0-14.5); WHITE BLOOD COUNT 9.9 10*3/uL (4.8-10.8)
[2022-05-01 15:09] LABS: ALKALINE PHOSPHATASE 105 U/L (46-116); BUN 15 mg/dl (9-23); CHLORIDE 103 mmol/L (98-107); POTASSIUM 3.7 mmol/L (3.4-5.1); SGPT/ALT 20 U/L (10-49); TOTAL PROTEIN 7.8 gm/dL (6.0-8.0)
== END | disposition home or self-care (01) ==
LOC: LAB 13:42
PROVIDERS: ATTEND Family Medicine
DX: I10 Essential (primary) hypertension (principal); M54.2 Cervicalgia; G62.9 Polyneuropathy, unspecified; M79.10 Myalgia, unspecified site; R73.9 Hyperglycemia, unspecified

== ENCOUNTER → 2022-05-30 | Outpatient (CLI) | payer OTHER | END | disposition home or self-care (01) | LOC: RAD 14:18 | PROVIDERS: ATTEND Nurse Practitioner Women's Health | DX: S99.921A Unspecified injury of right foot, initial encounter (principal); X58.XXXA Exposure to other specified factors, initial encounter; Y93.89 Activity, other specified; Y92.89 Other specified places as the place of occurrence of the external cause; Y99.8 Other external cause status ==

== ENCOUNTER → 2022-06-09 | Outpatient (CLI) | payer OTHER | END | disposition home or self-care (01) | LOC: MRI 00:26 | PROVIDERS: ATTEND Nurse Practitioner Women's Health | DX: M25.474 Effusion, right foot (principal); M79.89 Other specified soft tissue disorders; M72.2 Plantar fascial fibromatosis ==

== ENCOUNTER → 2022-06-28 | Outpatient (CLI) | payer OTHER | END | disposition home or self-care (01) | LOC: RESCLI 01:16 | PROVIDERS: ATTEND Internal Medicine | DX: F32.9 Major depressive disorder, single episode, unspecified (principal); E55.9 Vitamin D deficiency, unspecified; J45.909 Unspecified asthma, uncomplicated; M79.2 Neuralgia and neuritis, unspecified; E88.81 Metabolic syndrome and other insulin resistance; I10 Essential (primary) hypertension; M54.9 Dorsalgia, unspecified; E78.00 Pure hypercholesterolemia, unspecified; K21.9 Gastro-esophageal reflux disease without esophagitis; Z86.16 Personal history of COVID-19; Z79.899 Other long term (current) drug therapy ==

== ENCOUNTER → 2022-07-26 | Outpatient (CLI) | payer OTHER ==
[2022-07-26 10:06] LABS: ALKALINE PHOSPHATASE 94 U/L (46-116); BUN 16 mg/dl (9-23); CHLORIDE 105 mmol/L (98-107); FREE T4 1.05 ng/dl (0.89-1.76); POTASSIUM 3.6 mmol/L (3.4-5.1); SGPT/ALT 14 U/L (10-49); THYROID STIM HORMONE (HS) 1.403 uIU/ml (0.550-4.780); TOTAL PROTEIN 7.3 gm/dL (6.0-8.0)
[2022-07-30 15:06] LABS: TESTOSTERONE FREE, (DIRECT) 0.8 pg/mL (0.0-4.2)
== END | disposition home or self-care (01) ==
LOC: LAB 00:12
PROVIDERS: ATTEND Internal Medicine Endocrinology, Diabetes & Metabolism
DX: E28.2 Polycystic ovarian syndrome (principal); E88.81 Metabolic syndrome and other insulin resistance; R53.83 Other fatigue

== ENCOUNTER → 2022-10-27 | Outpatient (CLI) | payer OTHER ==
[2022-10-27 09:30] LABS: BASO % 0.4 % (0.0-1.0); EOS # 0.2 10*3/uL (0.0-0.4); HEMATOCRIT 40.3 % (37.0-47.0); LYMPH # 2.4 10*3/uL (1.3-4.4); LYMPH % 29.4 % (27.0-41.0); MEAN CELL VOLUME 92.4 fl (81.0-99.0); MEAN CORPUSCULAR HGB 31.7 pg (27.0-31.0); MEAN CORPUSCULAR HGB CONC 34.2 g/dl (33.0-37.0); MEAN PLATELET VOLUME 10.9 fl (9.6-12.3); MONO # 0.8 10*3/uL (0.1-1.0); MONO % 9.6 % (3.0-9.0); NEUT # 4.8 10*3/uL (2.3-7.9); NEUT % 58.4 % (47.0-73.0); PLATELET COUNT AUTOMATED 327 10*3/uL (130-400); RED BLOOD COUNT 4.36 10*6/uL (4.10-5.10); RED CELL DISTRI WIDTH 12.1 % (0-14.5); WHITE BLOOD COUNT 8.1 10*3/uL (4.8-10.8)
[2022-10-27 10:18] LABS: VITAMIN D, 25-HYDROXY 41.7 ng/mL (30-100)
[2022-10-27 10:24] LABS: ALKALINE PHOSPHATASE 83 U/L (46-116); BUN 16 mg/dl (9-23); CHLORIDE 106 mmol/L (98-107); CHOLESTEROL 163 mg/dL (<200); FREE T4 1.12 ng/dl (0.89-1.76); LDL CHOLESTEROL 93 mg/dL (9-159); POTASSIUM 3.6 mmol/L (3.4-5.1); SGPT/ALT 10 U/L (10-49); TRIGLYCERIDES 134 mg/dl (<150)
== END | disposition home or self-care (01) ==
LOC: LAB 00:49
PROVIDERS: ATTEND Internal Medicine
DX: I10 Essential (primary) hypertension (principal); E78.2 Mixed hyperlipidemia; F33.0 Major depressive disorder, recurrent, mild; F41.1 Generalized anxiety disorder

== ENCOUNTER → 2022-10-28 | Outpatient (CLI) | payer OTHER | END | disposition home or self-care (01) | LOC: US 01:58 | PROVIDERS: ATTEND Internal Medicine | DX: I65.23 Occlusion and stenosis of bilateral carotid arteries (principal) ==

== ENCOUNTER → 2022-12-05 | Outpatient (CLI) | payer OTHER | END | disposition home or self-care (01) | LOC: MAMMO 11-16 07:30 | PROVIDERS: ATTEND Internal Medicine | DX: Z12.31 Encounter for screening mammogram for malignant neoplasm of breast (principal) ==

== ENCOUNTER → 2023-02-28 | Outpatient (CLI) | payer OTHER ==
[2023-02-28 09:19] LABS: BASO % 0.5 % (0.0-1.0); EOS # 0.2 10*3/uL (0.0-0.4); EOS % 2.3 % (1.0-4.0); HEMATOCRIT 42.7 % (37.0-47.0); LYMPH # 2.6 10*3/uL (1.3-4.4); LYMPH % 29.6 % (27.0-41.0); MEAN CELL VOLUME 94.9 fl (81.0-99.0); MEAN CORPUSCULAR HGB 31.3 pg (27.0-31.0); MEAN PLATELET VOLUME 10.8 fl (9.6-12.3); MONO # 0.8 10*3/uL (0.1-1.0); MONO % 9.3 % (3.0-9.0); NEUT % 58.1 % (47.0-73.0); PLATELET COUNT AUTOMATED 336 10*3/uL (130-400); RED CELL DISTRI WIDTH 12.2 % (0-14.5); WHITE BLOOD COUNT 8.7 10*3/uL (4.8-10.8)
[2023-02-28 09:52] LABS: ALKALINE PHOSPHATASE 91 U/L (46-116); BUN 18 mg/dl (9-23); CHLORIDE 107 mmol/L (98-107); CHOLESTEROL 227 mg/dL (<200); FREE T4 1.07 ng/dl (0.89-1.76); LDL CHOLESTEROL 155 mg/dL (9-159); POTASSIUM 3.9 mmol/L (3.4-5.1); SGPT/ALT 16 U/L (5-49); TOTAL PROTEIN 7.2 gm/dL (6.0-8.0); TRIGLYCERIDES 160 mg/dl (<150)
[2023-02-28 09:54] LABS: VITAMIN D, 25-HYDROXY 38.8 ng/mL (30-100)
== END | disposition home or self-care (01) ==
LOC: LAB 02-27 01:07
PROVIDERS: ATTEND Internal Medicine
DX: Z13.0 Encounter for screening for diseases of the blood and blood-forming organs and certain disorders involving the immune mechanism (principal); Z13.1 Encounter for screening for diabetes mellitus; Z13.21 Encounter for screening for nutritional disorder; Z13.220 Encounter for screening for lipoid disorders; Z13.228 Encounter for screening for other metabolic disorders; Z13.29 Encounter for screening for other suspected endocrine disorder; Z13.6 Encounter for screening for cardiovascular disorders; Z13.89 Encounter for screening for other disorder; Z13.9 Encounter for screening, unspecified; I10 Essential (primary) hypertension; E78.2 Mixed hyperlipidemia; E11.9 Type 2 diabetes mellitus without complications

== ENCOUNTER → 2023-03-01 | Outpatient (CLI) | payer OTHER | END | disposition home or self-care (01) | LOC: RAD 15:20 | PROVIDERS: ATTEND Internal Medicine | DX: R05.3 Chronic cough (principal) ==

== ENCOUNTER → 2023-03-08 | Outpatient (CLI) | payer OTHER ==
[2023-03-08 11:54] LABS: BILIRUBIN Negative (Negative); BLOOD Negative (Negative); CLARITY Clear (Clear); COLOR Yellow (Yellow); GLUCOSE Negative (Negative); KETONE Negative (Negative); LEUKO ESTERASE Trace (Negative); NITRITE Negative (Negative); PH 5.5 (4.5-8.0); UROBILINOGEN 0.2 E.U./dl (0.0-1.0)
[2023-03-08 12:31] LABS: BACTERIA 2+
== END | disposition home or self-care (01) ==
LOC: RESCLI 11:03
PROVIDERS: Student in an Organized Health Care Education/Training Program; ATTEND Family Medicine
DX: J02.9 Acute pharyngitis, unspecified (principal); R30.0 Dysuria; H66.90 Otitis media, unspecified, unspecified ear; Z79.899 Other long term (current) drug therapy; Z83.3 Family history of diabetes mellitus; Z82.49 Family history of ischemic heart disease and other diseases of the circulatory system; Z80.0 Family history of malignant neoplasm of digestive organs; Z82.3 Family history of stroke; Z90.49 Acquired absence of other specified parts of digestive tract; Z98.890 Other specified postprocedural states

== ENCOUNTER → 2023-05-03 | Outpatient (CLI) | payer OTHER | END | disposition home or self-care (01) | LOC: US 11:24 | PROVIDERS: ATTEND Nurse Practitioner Women's Health | DX: D25.1 Intramural leiomyoma of uterus (principal) ==

== ENCOUNTER → 2023-05-15 | Outpatient (CLI) | payer OTHER | END | disposition home or self-care (01) | LOC: RAD 14:20 | PROVIDERS: ATTEND Internal Medicine | DX: M77.52 Other enthesopathy of left foot and ankle (principal) ==

== ENCOUNTER → 2023-06-28 | Outpatient (CLI) | payer OTHER ==
[2023-06-28 09:14] LABS: BASO # 0.1 10*3/uL (0.0-0.1); BASO % 0.7 % (0.0-1.0); EOS # 0.1 10*3/uL (0.0-0.4); EOS % 1.9 % (1.0-4.0); HEMATOCRIT 41.3 % (37.0-47.0); LYMPH # 2.3 10*3/uL (1.3-4.4); LYMPH % 33.7 % (27.0-41.0); MEAN CELL VOLUME 94.3 fl (81.0-99.0); MEAN CORPUSCULAR HGB 31.3 pg (27.0-31.0); MEAN CORPUSCULAR HGB CONC 33.2 g/dl (33.0-37.0); MEAN PLATELET VOLUME 10.3 fl (9.6-12.3); MONO # 0.6 10*3/uL (0.1-1.0); MONO % 9.1 % (3.0-9.0); NEUT # 3.7 10*3/uL (2.3-7.9); NEUT % 54.3 % (47.0-73.0); PLATELET COUNT AUTOMATED 330 10*3/uL (130-400); RED BLOOD COUNT 4.38 10*6/uL (4.10-5.10); RED CELL DISTRI WIDTH 12.2 % (0-14.5); WHITE BLOOD COUNT 6.8 10*3/uL (4.8-10.8)
[2023-06-28 09:28] LABS: URINE CREATININE RANDOM 161.24 mg/dL
[2023-06-28 10:06] LABS: ALKALINE PHOSPHATASE 82 U/L (46-116); BUN 16 mg/dl (9-23); CHLORIDE 106 mmol/L (98-107); CHOLESTEROL 211 mg/dL (<200); LDL CHOLESTEROL 140 mg/dL (9-159); POTASSIUM 3.9 mmol/L (3.4-5.1); SGPT/ALT 16 U/L (5-49); TRIGLYCERIDES 123 mg/dl (<150)
== END | disposition home or self-care (01) ==
LOC: RESCLI 00:56
PROVIDERS: Student in an Organized Health Care Education/Training Program; ATTEND Internal Medicine
DX: I10 Essential (primary) hypertension (principal); E11.9 Type 2 diabetes mellitus without complications; M54.50 Low back pain, unspecified; K21.9 Gastro-esophageal reflux disease without esophagitis; E78.00 Pure hypercholesterolemia, unspecified; J45.909 Unspecified asthma, uncomplicated; F32.9 Major depressive disorder, single episode, unspecified; E78.5 Hyperlipidemia, unspecified; G62.9 Polyneuropathy, unspecified; E55.9 Vitamin D deficiency, unspecified; R30.0 Dysuria; Z82.49 Family history of ischemic heart disease and other diseases of the circulatory system; Z79.899 Other long term (current) drug therapy

== ENCOUNTER → 2023-10-25 | Outpatient (CLI) | payer OTHER | END | disposition home or self-care (01) | LOC: LAB 13:41 | PROVIDERS: ATTEND Internal Medicine | DX: Z01.812 Encounter for preprocedural laboratory examination (principal) ==

== ENCOUNTER → 2023-10-26 | Outpatient (CLI) | payer OTHER ==
[~2023-10-26] MED LIST changes: +IOHEXOL 300 MG/ML 100 ML VIAL IV ONE; +IOHEXOL 300 MG/ML 100 ML VIAL ONE
== END | disposition home or self-care (01) ==
LOC: CT 02:27
PROVIDERS: ATTEND Internal Medicine
DX: R10.84 Generalized abdominal pain (principal); Z90.49 Acquired absence of other specified parts of digestive tract; M47.816 Spondylosis without myelopathy or radiculopathy, lumbar region; M25.78 Osteophyte, vertebrae

== ENCOUNTER → 2023-11-27 | Outpatient (CLI) | payer OTHER ==
[~2023-11-27] MED LIST changes: +Albuterol Sulfate 2.5 MG/3 ML VIAL NEB ONE; -IOHEXOL 300 MG/ML 100 ML VIAL IV ONE; -IOHEXOL 300 MG/ML 100 ML VIAL ONE
== END | disposition home or self-care (01) ==
LOC: CP 01:57
PROVIDERS: ATTEND Internal Medicine Critical Care Medicine
DX: J45.20 Mild intermittent asthma, uncomplicated (principal); J30.89 Other allergic rhinitis; G47.33 Obstructive sleep apnea (adult) (pediatric); Z68.25 Body mass index [BMI] 25.0-25.9, adult

== ENCOUNTER → 2023-12-17 | Day surgery (SDC) | payer OTHER ==
[~2023-12-17] VITALS: Ht 154.9 cm; Wt 58.1 kg
[~2023-12-17] MED LIST changes: +24 HOUR ALLER15.8 ML INH; -Albuterol Sulfate 2.5 MG/3 ML VIAL NEB ONE; +CEFDINIR300 MG PO; +Dexamethasone Sodium Phospha 4 MG/ML VIAL IV ONE; +Lidocaine Hydrochloride 5 ML VIAL IV ONE; +METHOCARBAMOL750 M1 PO; +METOPROLOL SUCC25 M2 PO; +MOUNJARO12.5 MG/01 IJ; +Metoclopramide Hydrochloride 10 MG/2 ML VIAL IV ONE; +Ondansetron Hydrochloride 4 MG/2 ML VIAL IV ONE; +PRILOSEC20 M1 PO; +PROPOFOL 200 MG/20 ML VIAL IV ONE; +ROSUVASTATIN-E1 EAC2 PO; +VENT7GM INH
[2023-12-17 08:36] VITALS: BP 119/79
[2023-12-17 11:00] VITALS: BP 116/68
[2023-12-17 11:15] VITALS: BP 111/69
[2023-12-17 11:28] VITALS: BP 105/70
== END | disposition home or self-care (01) ==
LOC: SDC 12-13 12:30
PROVIDERS: ATTEND Surgery
DX: R10.9 Unspecified abdominal pain (principal); D12.5 Benign neoplasm of sigmoid colon; K63.5 Polyp of colon; K64.8 Other hemorrhoids; I10 Essential (primary) hypertension; E11.9 Type 2 diabetes mellitus without complications; K21.9 Gastro-esophageal reflux disease without esophagitis; J45.909 Unspecified asthma, uncomplicated; E78.00 Pure hypercholesterolemia, unspecified; Z98.891 History of uterine scar from previous surgery; Z90.49 Acquired absence of other specified parts of digestive tract; Z98.890 Other specified postprocedural states; Z79.899 Other long term (current) drug therapy; Z82.49 Family history of ischemic heart disease and other diseases of the circulatory system; Z80.0 Family history of malignant neoplasm of digestive organs

== ENCOUNTER → 2023-12-31 | Outpatient (CLI) | payer OTHER ==
[~2023-12-31] MED LIST changes: -Dexamethasone Sodium Phospha 4 MG/ML VIAL IV ONE; -Lidocaine Hydrochloride 5 ML VIAL IV ONE; -Metoclopramide Hydrochloride 10 MG/2 ML VIAL IV ONE; -Ondansetron Hydrochloride 4 MG/2 ML VIAL IV ONE; -PROPOFOL 200 MG/20 ML VIAL IV ONE
== END | disposition home or self-care (01) ==
LOC: RAD 12:27 → MAMMO 14:00
PROVIDERS: ATTEND Nurse Practitioner Women's Health
DX: Z12.31 Encounter for screening mammogram for malignant neoplasm of breast (principal); Z13.820 Encounter for screening for osteoporosis; S92.811A Other fracture of right foot, initial encounter for closed fracture; I10 Essential (primary) hypertension; Z78.0 Asymptomatic menopausal state; X58.XXXA Exposure to other specified factors, initial encounter; Y93.89 Activity, other specified; Y92.89 Other specified places as the place of occurrence of the external cause; Y99.8 Other external cause status

== ENCOUNTER → 2024-01-22 | Outpatient (CLI) | payer OTHER ==
[2024-01-22 15:55] LABS: BASO % 0.4 % (0.0-1.0); EOS # 0.2 10*3/uL (0.0-0.4); EOS % 1.8 % (1.0-4.0); HEMATOCRIT 39.9 % (37.0-47.0); MEAN CELL VOLUME 95.7 fl (81.0-99.0); MEAN CORPUSCULAR HGB 31.7 pg (27.0-31.0); MEAN CORPUSCULAR HGB CONC 33.1 g/dl (33.0-37.0); MEAN PLATELET VOLUME 9.9 fl (9.6-12.3); MONO # 0.9 10*3/uL (0.1-1.0); MONO % 9.5 % (3.0-9.0); NEUT # 3.8 10*3/uL (2.3-7.9); NEUT % 42.9 % (47.0-73.0); PLATELET COUNT AUTOMATED 340 10*3/uL (130-400); RED BLOOD COUNT 4.17 10*6/uL (4.10-5.10); RED CELL DISTRI WIDTH 12.2 % (0-14.5)
[2024-01-22 16:16] LABS: ALKALINE PHOSPHATASE 89 U/L (46-116); BUN 15 mg/dl (9-23); CHLORIDE 104 mmol/L (98-107); CHOLESTEROL 225 mg/dL (<200); FREE T4 1.05 ng/dl (0.89-1.76); LDL CHOLESTEROL 110 mg/dL (9-159); SGPT/ALT 23 U/L (5-49); TOTAL PROTEIN 7.2 gm/dL (6.0-8.0); TRIGLYCERIDES 316 mg/dl (<150)
[2024-01-22 16:37] LABS: VITAMIN D, 25-HYDROXY 29.3 ng/mL (30-100)
== END | disposition home or self-care (01) ==
LOC: LAB 15:38
PROVIDERS: ATTEND Internal Medicine
DX: E11.9 Type 2 diabetes mellitus without complications (principal); E78.2 Mixed hyperlipidemia; I10 Essential (primary) hypertension; Z68.38 Body mass index [BMI] 38.0-38.9, adult

== ENCOUNTER → 2024-05-24 | Outpatient (CLI) | payer OTHER ==
[2024-05-24 07:42] LABS: CHOLESTEROL 193 mg/dL (<200); LDL CHOLESTEROL 123 mg/dL (9-159); TRIGLYCERIDES 106 mg/dl (<150)
== END | disposition home or self-care (01) ==
LOC: LAB 00:30
PROVIDERS: ATTEND Internal Medicine
DX: E11.9 Type 2 diabetes mellitus without complications (principal); E78.2 Mixed hyperlipidemia; E55.9 Vitamin D deficiency, unspecified; I10 Essential (primary) hypertension; Z13.0 Encounter for screening for diseases of the blood and blood-forming organs and certain disorders involving the immune mechanism; Z13.1 Encounter for screening for diabetes mellitus; Z13.220 Encounter for screening for lipoid disorders; Z13.228 Encounter for screening for other metabolic disorders; Z13.6 Encounter for screening for cardiovascular disorders; Z13.21 Encounter for screening for nutritional disorder; Z13.89 Encounter for screening for other disorder

== ENCOUNTER → 2024-06-18 | Outpatient (CLI) | payer OTHER | END | disposition home or self-care (01) | LOC: RESCLI 03:31 | PROVIDERS: ATTEND Internal Medicine | DX: E11.9 Type 2 diabetes mellitus without complications (principal); F32.9 Major depressive disorder, single episode, unspecified; J30.2 Other seasonal allergic rhinitis; I10 Essential (primary) hypertension; E78.5 Hyperlipidemia, unspecified; K63.5 Polyp of colon; R10.2 Pelvic and perineal pain; Z79.899 Other long term (current) drug therapy; Z98.890 Other specified postprocedural states ==

== ENCOUNTER → 2024-06-20 | Outpatient (CLI) | payer OTHER | END | disposition home or self-care (01) | LOC: CT 04:38 | PROVIDERS: ATTEND Internal Medicine | DX: R10.31 Right lower quadrant pain (principal) ==

== ENCOUNTER → 2024-07-10 | Outpatient (CLI) | payer OTHER | END | disposition home or self-care (01) | LOC: US 05:23 | PROVIDERS: ATTEND Nurse Practitioner Women's Health | DX: D25.2 Subserosal leiomyoma of uterus (principal); R10.2 Pelvic and perineal pain ==

== ENCOUNTER → 2024-07-31 | Outpatient (CLI) | payer OTHER ==
[2024-07-31 11:42] LABS: ALKALINE PHOSPHATASE 70 U/L (46-116); BUN 18 mg/dl (9-23); CHLORIDE 106 mmol/L (98-107); CHOLESTEROL 206 mg/dL (<200); LDL CHOLESTEROL 132 mg/dL (9-159); POTASSIUM 4.2 mmol/L (3.4-5.1); SGPT/ALT 20 U/L (5-49); TRIGLYCERIDES 107 mg/dl (<150)
== END | disposition home or self-care (01) ==
LOC: LAB 01:44
PROVIDERS: ATTEND Internal Medicine Endocrinology, Diabetes & Metabolism
DX: I10 Essential (primary) hypertension (principal); E11.9 Type 2 diabetes mellitus without complications; E78.5 Hyperlipidemia, unspecified

== ENCOUNTER → 2024-09-19 | Outpatient (CLI) | payer OTHER ==
[~2024-09-19] MED LIST changes: +IOHEXOL 300 MG/ML 100 ML VIAL IV ONE
== END | disposition home or self-care (01) ==
LOC: CT 07:43
PROVIDERS: ATTEND Family Medicine
DX: K57.90 Diverticulosis of intestine, part unspecified, without perforation or abscess without bleeding (principal); D21.9 Benign neoplasm of connective and other soft tissue, unspecified; R10.2 Pelvic and perineal pain; R63.4 Abnormal weight loss; R63.5 Abnormal weight gain

== ENCOUNTER → 2024-09-29 | Outpatient (CLI) | payer OTHER ==
[~2024-09-29] MED LIST changes: +GADOTERATE MEGLUMINE 7.5 MMOL/15 ML VIAL IV ONE; -IOHEXOL 300 MG/ML 100 ML VIAL IV ONE
== END | disposition home or self-care (01) ==
LOC: MRI 08:06
PROVIDERS: ATTEND Internal Medicine
DX: M50.122 Cervical disc disorder at C5-C6 level with radiculopathy (principal); M50.121 Cervical disc disorder at C4-C5 level with radiculopathy; M50.11 Cervical disc disorder with radiculopathy, high cervical region; M51.16 Intervertebral disc disorders with radiculopathy, lumbar region; M51.360 Other intervertebral disc degeneration, lumbar region with discogenic back pain only; M53.3 Sacrococcygeal disorders, not elsewhere classified; M47.26 Other spondylosis with radiculopathy, lumbar region; M47.818 Spondylosis without myelopathy or radiculopathy, sacral and sacrococcygeal region; M43.16 Spondylolisthesis, lumbar region; M48.061 Spinal stenosis, lumbar region without neurogenic claudication; M48.02 Spinal stenosis, cervical region; M43.22 Fusion of spine, cervical region; M51.34 Other intervertebral disc degeneration, thoracic region

== ENCOUNTER → 2024-11-19 | Outpatient (CLI) | payer OTHER ==
[~2024-11-19] MED LIST changes: -GADOTERATE MEGLUMINE 7.5 MMOL/15 ML VIAL IV ONE
[2024-11-19 10:07] LABS: BASO # 0.0 10*3/uL (0.0-0.1); BASO % 0.4 % (0.0-1.0); EOS # 0.1 10*3/uL (0.0-0.4); EOS % 0.8 % (1.0-4.0); MEAN CELL VOLUME 94.9 fl (81.0-99.0); MEAN CORPUSCULAR HGB 31.6 pg (27.0-31.0); MEAN PLATELET VOLUME 9.7 fl (9.6-12.3); MONO # 0.8 10*3/uL (0.1-1.0); MONO % 10.3 % (3.0-9.0); NEUT # 4.2 10*3/uL (2.3-7.9); NEUT % 58.4 % (47.0-73.0); NUCLEATED RED BLOOD CELL 0.0 % (0.0-0.0); NUCLEATED RED BLOOD CELL 0.0 10*3/uL (0.0-0.0); PLATELET COUNT AUTOMATED 344 10*3/uL (130-400); RED CELL DISTRI WIDTH 12.6 % (0-14.5)
== END | disposition home or self-care (01) ==
LOC: LAB 09:53
PROVIDERS: Student in an Organized Health Care Education/Training Program; ATTEND Internal Medicine
DX: T14.8XXA Other injury of unspecified body region, initial encounter (principal); X58.XXXA Exposure to other specified factors, initial encounter

== ENCOUNTER → 2025-01-01 | Outpatient (CLI) | payer OTHER | END | disposition home or self-care (01) | LOC: MAMMO 01:20 | PROVIDERS: ATTEND Nurse Practitioner Women's Health | DX: Z12.31 Encounter for screening mammogram for malignant neoplasm of breast (principal); R92.313 Mammographic fatty tissue density, bilateral breasts ==

== ENCOUNTER → 2025-02-09 | Outpatient (CLI) | payer OTHER ==
[2025-02-09 11:38] LABS: BUN 17 mg/dl (9-23); LDL CHOLESTEROL 128 mg/dL (9-159); SGPT/ALT 19 U/L (5-49)
== END | disposition home or self-care (01) ==
LOC: LAB 10:50
PROVIDERS: ATTEND Internal Medicine Endocrinology, Diabetes & Metabolism
DX: E11.9 Type 2 diabetes mellitus without complications (principal)